=== PATIENT | male | born 1955 | race Caucasian/White ===

== ENCOUNTER 2016-04-25 19:12 | Emergency (ER) | payer BC ==
[2016-04-25 19:00] LABS: BASOPHILS 0.3 %; BASOPHILS ABSOLUTE 0.03 10/3/uL (0.0-0.16); EOSINOPHILS 0.7 %; EOSINOPHILS ABSOLUTE 0.06 10/3/uL (0.0-0.53); ER CBC TAT 0 Hrs 10 Mins; HEMATOCRIT 28.1 % (40.0-51.0); IMMATURE GRANULOCYTES 8.7 %; IMMATURE GRANULOCYTES ABSOLUTE 0.79 10/3/uL (0.0-0.11); LYMPHOCYTES 18.6 %; LYMPHOCYTES ABSOLUTE 1.68 10/3/uL (0.67-4.30); MEAN CORPUSCULAR HEMOGLOB 24.8 pg (26.0-34.0); MEAN CORPUSCULAR VOLUME 77.4 fL (80-100); MEAN PLATELET VOLUME 9.4 fL (9.2-13.0); MONOCYTES 3.7 %; MONOCYTES ABSOLUTE 0.33 10/3/uL (0.21-1.20); NEUTROPHILS ABSOLUTE 6.15 10/3/uL (2.02-8.40); RBC DISTRIBUTION WIDTH 17.2 % (12.0-16.0); RED CELL COUNT 3.63 10/6/uL (4.7-6.1)
[2016-04-25 19:02] LABS: MANUAL DIFF NO %; PLATELET COUNT 276 10/3/uL (150-400)
[~2016-04-25 19:12] MED LIST: ASAB PO; COREG12 PO; COREG25 PO; DIGITEK0.125 MG PO; GLUCPH PO; L40 PO; LISINOPRIL40 MG PO; MTX2.5 PO; SACU1TAB7 PO; SPIRO25 PO
[2016-04-25 19:14] LABS: ASCORBIC ACID (UR NOT ORDER) NEG (NEG); BILIRUBIN, URINE NEGATIVE (NEG); ER URINALYSIS TAT 0 Hrs 09 Mins; KETONE, URINE TRACE MG/DL (NEG); LEUKOCYTE ESTERASE(NOT OR NEG (NEG); NITRITE (URINE) NEG (NEG); WBC (NOT ORDERED) (RFLEX) 2 (0-5)
[2016-04-25 19:14] LABS: INTERNATIONAL NORMAL RATI 1.3 UNITS (-); PARTIAL THROMBO TIME 37.1 SEC (22.5-37.2); PROTIME (NOT ORD) 15.6 SEC (12.0-14.5)
[2016-04-25 19:18] LABS: BUN (BLOOD UREA NITROGEN) 18 MG/DL (6-23); CALCIUM, SERUM 8.9 MG/DL (8.5-10.4); CHEST PAIN PROFILE TAT 0 Hrs 28 Mins; CHLORIDE, SERUM 93 MMOL/L (96-112); GFR AFRICAN AMERICAN 119 ML/MIN (>=60); GFR NON AFRICAN AMERICAN 103 ML/MIN (>=60); SODIUM, SERUM 137 MMOL/L (135-148); TROPONIN I <0.02 NG/ML (<0.05)
[2016-04-25 19:23] LABS: CO2 (CARBON DIOXIDE) 33 MMOL/L (24-34); GLUCOSE, SERUM 111 MG/DL (60-99); POTASSIUM, SERUM 2.9 MMOL/L (3.5-5.3)
[2016-04-25 19:29] LABS: LACTATE 1.7 MMOL/L (0.3-2.4)
[2016-04-25 20:01] LABS: BAND NEUTROPHILS 2 %; IMMATURE GRANS ABSOLUTE (CALC) 0.36 10/3/uL (0.0-0.11); LYMPHOCYTES 14 %; LYMPHOCYTES ABSOLUTE (CALC) 1.26 10/3/uL (0.67-4.30); METAMYELOCYTES 4 %; NEUTROPHILS ABSOLUTE (CALC) 7.38 10/3/uL (2.02-8.40); SEGMENTED NEUTROPHIL (0) 80 %; TOTAL NUCLEATED CELLS 100
[2016-04-25 20:02] LABS: ANISOCYTOSIS 1+ (5-10/OIF) (0-5/OIF)
[2016-04-25 20:03] LABS: RBC MORPHOLOGY NORM (NORMAL)
[2016-04-25 20:04] LABS: SPHEROCYTES OCC (0-2/OIF); TEARDROP SHAPED RBCS OCC (0-2/OIF)
[2016-05-02] MEDS ORDERED: COREG25 PO (14:58)
[2016-05-02] MEDS ORDERED: GLUCPH PO (14:58)
[2016-05-02] MEDS ORDERED: SPIRO25 PO (14:59)
[2016-05-02] MEDS ORDERED: SACU1TAB7 PO (14:59)
[2016-05-02] MEDS ORDERED: L40 PO (14:59)
[2016-05-02] MEDS ORDERED: LAN125 PO (14:59)
[2016-05-02] MEDS ORDERED: MTX2.5 PO (15:00)
[2016-05-02] MEDS ORDERED: ALEVE220 MG PO (15:00)
[2016-05-02] MEDS ORDERED: KDUR20 PO (15:00)
[2016-05-15] MEDS ORDERED: PROTONIX PO (09:38)
== END 2016-04-25 21:49 | disposition home or self-care (01) ==
LOC: ER 19:12
PROVIDERS: Specialist
DX: E87.6 Hypokalemia (principal); D64.9 Anemia, unspecified; F32.9 Major depressive disorder, single episode, unspecified; I11.0 Hypertensive heart disease with heart failure; I50.9 Heart failure, unspecified; E11.9 Type 2 diabetes mellitus without complications; Z79.84 Long term (current) use of oral hypoglycemic drugs; Z79.82 Long term (current) use of aspirin; Z79.899 Other long term (current) drug therapy
CPT/HCPCS: 71010; 80048; 81001; 83605; 83735; 83880; 84484; 85025; 85610; 85730; 87040; 96360; 99285; A9270-GY